=== PATIENT | female | born 1965 | race Caucasian/White ===

== ENCOUNTER 2022-02-23 15:05 | Outpatient (CLI) | payer OTHER, SELFPAY ==
--- OUTSIDE RECORDS SUMMARY | 2022-02-23 08:28 | XMS_ITS | Clinical Summary ---
:1965 Author Organization [facility] [place] [address] Care Team Providers Name Role Phone Pcp, No Primary Care Provider Unavailable Allergies Not on File Medications Medication Sig Dispensed Refills Start Date End Date Status levothyroxine (SYNTHROID) 75 mcg 0 018 Active tablet indomethacin (INDOCIN) 50 mg capsule 0 Active Active Problems Not on file Social History Tobacco Use Types Packs/Day Years Used Date Never Smoker Sex Assigned at Date Recorded Not on file Obstetrics History Last Filed Vital Signs Vital Sign Reading Time Taken Comments Blood Pressure 107/72 09/11/2017 3:38 PM CDT Pulse 86 09/11/2017 3:38 PM CDT Temperature - - Respiratory Rate - - Oxygen Saturation 97% 09/11/2017 3:38 PM CDT Inhaled Oxygen Concentration - - Weight 94.4 kg (208 lb 3.2 oz) 09/11/2017 3:38 PM CDT Height - - Body Mass Index - - Plan of Treatment Health Maintenance Due Date Last Done Comments COVID-19 vaccine series (#1) 1967 Tdap 1978 Depression screening for age 12+ 1979 BMI (ht and wt on same day) for age 18+ 1985 Hepatitis C screening for age 18-79 1985 Tetanus booster 1987 Pap test for age 21-65 02/02/1988 Colonoscopy through age 75 02/02/2012 Lipids for age 45-75 02/02/2012 Mammogram for age 45-75 02/02/2012 Zoster (shingles) series for age 50+ (1 of 2) 2017 Influenza for age 50-64 12/29/2021 Results Not on filefrom Last 3 Months Insurance Payer Benefit Plan / Subscriber ID Effective Dates Phone Addre ss Type Group PREFERRED ONE PREFERRED ONE [id number] 2016-Present [address] [place] [address] Care Teams Vein Pumper Relationship Specialty Start Date End Date Pcp, No PCP - General 09/11/17 .
[2022-02-23 12:04] LABS: Albumin* 4.4 g/dL (3.3-5.0)
[2022-02-23 12:05] LABS: Chloride* 102 mmol/L (96-114); Sodium* 139 mmol/L (135-149)
[2022-02-23 12:07] LABS: Alanine Aminotransferase* 17 U/L (4-35); Alkaline Phosphatase* 33 U/L (40-150); Aspartate Amino Transferase* 22 U/L (12-35); Bilirubin Total* 0.3 mg/dL (0.1-1.5); Blood Urea Nitrogen* 22 mg/dL (7-30); Carbon Dioxide* 31 mmol/L (20-32); Cholesterol* 236 mg/dL (90-199); Creatinine* 1.7 mg/dL (0.5-1.5); Estimated Glomerular Filt Rate 35 ml/min; Glucose* 89 mg/dL (60-115); Total Protein* 7.4 g/dL (6.0-8.3)
[2022-02-23 12:08] LABS: Calcium* 10.5 mg/dL (8.4-10.6); HDL Cholesterol* 71 mg/dL (>=50); LDL Cholesterol Calculated 138 mg/dL (<100); Triglycerides* 133 mg/dL (40-149)
== END 2022-02-23 15:06 | disposition home or self-care (01) ==
PROVIDERS: PCP Internal Medicine; Visit Provider Internal Medicine
DX: Z01.419 Encounter for gynecological examination (general) (routine) without abnormal findings (principal); E03.9 Hypothyroidism, unspecified; R79.89 Other specified abnormal findings of blood chemistry; Z13.6 Encounter for screening for cardiovascular disorders
CPT/HCPCS: 80053; 80061; 84443

== ENCOUNTER 2022-03-14 13:50 | Outpatient (CLI) | payer OTHER, SELFPAY ==
--- OUTSIDE RECORDS SUMMARY | 2022-03-14 13:52 | XMS_ITS | Clinical Summary ---
:1965 Author Organization [facility] [place] [address] Care Team Providers Name Role Phone Pcp, [...] ss Type Group PREFERRED ONE PREFERRED ONE [id number] 2016-Present [address] [place] [address] Care Teams Adoption Services Manager Relationship Specialty Start Date End Date Pcp, No PCP - General 09/11/17 .
[2022-03-14 22:24] LABS: SARS PCR* Negative SARS-CoV-2 (Negative)
== END 2022-03-14 13:51 | disposition home or self-care (01) ==
LOC: KYNREF 13:51
PROVIDERS: PCP Internal Medicine; Visit Provider Nurse Practitioner Family
DX: Z20.822 Contact with and (suspected) exposure to COVID-19 (principal); R05.9 Cough, unspecified
CPT/HCPCS: 87635

== ENCOUNTER 2022-03-31 08:00 | Outpatient (CLI) | payer OTHER, SELFPAY ==
--- OUTSIDE RECORDS SUMMARY | 2022-03-31 08:03 | XMS_ITS | Clinical Summary ---
:1965 Author Organization [facility] [place] [address] Care Team Providers Name Role Phone Pcp, [...] 1978 Depression screening for age 12+ 1979 HIV for age 15-65 1982 BMI (ht and wt on same day) [...] ss Type Group PREFERRED ONE PREFERRED ONE [id number] 2016-Present [address] [place] [address] Care Teams Rn Hemodialysis Relationship Specialty Start Date End Date Pcp, No PCP - General 09/11/17 .
[2022-03-31 15:18] LABS: Chloride* 105 mmol/L (96-114); Sodium* 142 mmol/L (135-149)
[2022-03-31 15:19] LABS: Potassium* 4.7 mmol/L (3.6-5.1)
[2022-03-31 15:21] LABS: Blood Urea Nitrogen* 18 mg/dL (7-30); Carbon Dioxide* 27 mmol/L (20-32); Creatinine* 1.1 mg/dL (0.5-1.5); Estimated Glomerular Filt Rate 59 ml/min
[2022-03-31 15:22] LABS: Calcium* 10.8 mg/dL (8.4-10.6); Glucose* 89 mg/dL (60-115)
== END 2022-03-31 08:01 | disposition home or self-care (01) ==
LOC: KYNREF 08:02
PROVIDERS: PCP Nurse Practitioner Family; Visit Provider Nurse Practitioner Family
DX: R79.89 Other specified abnormal findings of blood chemistry (principal)
CPT/HCPCS: 80048

== ENCOUNTER 2022-04-04 13:41 | Outpatient (CLI) | payer OTHER, SELFPAY ==
--- OUTSIDE RECORDS SUMMARY | 2022-04-04 13:43 | XMS_ITS | Clinical Summary ---
:1965 Author Organization [employer] [facility] [place] [address] Care Team Providers Name Role Phone Pcp, [...] ss Type Group PREFERRED ONE PREFERRED ONE [id number] 2016-Present [address] [place] [address] Care Teams Bus Driver Supervisor Relationship Specialty Start Date End Date Pcp, No PCP - General 09/11/17 .
--- NOTE | 2022-04-04 15:20 | CRLHL7_ITS ---
For Patients: As a result of the Century Cures Act, medical imaging exams and procedure reports are released immediately into your electronic medical record. You may view this report before your referring provider. If you have questions, please contact your health care provider. BILATERAL SCREENING MAMMOGRAM WITH COMPUTER-AIDED DETECTION AND TOMOSYNTHESIS TECHNIQUE: CC and MLO views were obtained. These mammographic images have been obtained using full-field digital technique. These mammographic images were interpreted with the benefit of computer-aided detection. Breast Tomosynthesis was used in this interpretation. COMPARISON FILM: 12/25/19, 06/12/17, 06/08/16. FINDINGS: There are scattered areas of fibroglandular density IMPRESSION: There is no radiographic evidence for malignancy. ASSESSMENT: BI-RADS Category 1: Negative RECOMMENDATION: Routine screening mammogram in 1 year. A lay language report of this examination will be provided to the patient. Mat Ogden M.D. Diagnostic Radiologist [email or web address] Transcribed: 4:15 pm DW/Dictated by: Mat Ogden MD @ 04/05/2022 8:15:00 AM (Electronically Signed)
== END 2022-04-04 13:42 | disposition home or self-care (01) ==
LOC: MAMMO 13:41
PROVIDERS: PCP Nurse Practitioner Family; Visit Provider Internal Medicine
DX: Z12.31 Encounter for screening mammogram for malignant neoplasm of breast (principal)
CPT/HCPCS: 77063; 77067

== ENCOUNTER 2022-04-26 07:03 | Outpatient (CLI) | payer OTHER, SELFPAY ==
--- NOTE | 2022-04-26 07:15 | CRLHL7_ITS ---
For Patients: As a result of the Century Cures Act, medical imaging exams and procedure reports are released immediately into your electronic medical record. You may view this report before your referring provider. If you have questions, please contact your health care provider. INDICATION: Headaches. TECHNIQUE: Multiplanar multisequence noncontrast MR images acquired through the brain. COMPARISON: None. FINDINGS: The ventricles and sulci are within normal limits for patient age. No mass effect or midline shift. No parenchymal signal abnormalities. No intracranial hemorrhage or pathologic extra-axial fluid collection. No diffusion restriction to suggest acute infarction. The major arterial flow voids of the skullbase are preserved. The globes are symmetric. The paranasal sinuses are well aerated. The mastoid air cells are clear. IMPRESSION: Unremarkable noncontrast MRI of the brain. Dictated by Darien Ceballos MD @ 04/26/2022 1:29:56 PM (Electronically Signed)
== END 2022-04-26 07:04 | disposition home or self-care (01) ==
LOC: MRI 07:04
PROVIDERS: PCP Nurse Practitioner Family; Visit Provider Nurse Practitioner Family
DX: R51.9 Headache, unspecified (principal)
CPT/HCPCS: 70551

== ENCOUNTER 2022-07-27 07:56 | Emergency (ER) | payer OTHER, SELFPAY ==
[2022-07-27 07:58] VITALS: BP 149/88; PULSE 87; RESP 18; TEMP 36.1; O2SAT 97; BMI 36.9
--- NOTE | 2022-07-27 08:24 | ED.GENADULT ---
HPI - General Adult General Chief complaint: Extremity Pain/Injury, Upper Stated complaint: Left arm pain Time Seen by Provider: 07/27/22 08:09 History of Present Illness HPI narrative: This 57-year-old female comes in because of tingling sensation in her left arm that began this morning. She does not report any headache or weakness. She is walking and talking normally. She does not describe any injury event. She denies having any neck pain. She reports that her mother at her current age and this is triggering some anxiety regarding these symptoms. Related Data Previous Rx's Medication Instructions Recorded levothyroxine 75 mcg capsule 75 mcg PO QDAY #90 caps 03/06/22 meloxicam 15 mg tablet 15 mg PO DAILY #30 tabs 07/27/22 Allergies Allergy/AdvReac Type Severity Reaction Status Date / Time No Known Drug Allergies Allergy Verified 07/27/22 08:06 Review of Systems Status of ROS: Reports: 10 or more systems reviewed and unremarkable except as noted in History and below Narrative: Constitutional: No fevers, no weight gain or loss. Eyes: No discharge. No vision changes. HENT: No congestion, no sore throat, no ear pain. Cardiovascular: No chest pain, no palpitations. Respiratory: No shortness of breath, no wheezes, no cough. Gastrointestinal: No abdominal pain, no vomiting, no diarrhea. Genitourinary: No dysuria, no hematuria. Musculoskeletal: Normal range of motion. Skin: No rashes, no pruritis. Neurological: No dizziness, weakness, speech change. Tingling sensation in her left arm. Endo/Heme/Allergies: No bruising or bleeding. No polydipsia. Pysch: no suicidality, no anxiety, no insomnia. All other systems reviewed and are negative. [facility] Medical History (Updated 07/27/22 @ 09:41 by Stas Goldstein MD) Elevated serum creatinine ?R79.89 - Other specified abnormal findings of blood chemistry (ICD-10) Healthcare maintenance ?Z00.00 - Encounter for general adult medical examination without abnormal findings (ICD-10) Insomnia ?G47.00 - Insomnia, unspecified (ICD-10) Pain ?R52 - Pain, unspecified (ICD-10) Surgical History (Updated 04/17/22 @ 15:19 by Soniya Torre APRN, FILTER TIP CATCHER) History of bilateral knee replacement ?Z96.653 - Presence of artificial knee joint, bilateral (ICD-10) Family History (Updated 04/03/22 @ 13:13 by Soniya Torre APRN, FILTER TIP CATCHER) Mother Osteoporosis Stroke Social History Smoking Status: Never smoker How often do you have a drink containing alcohol: never How often do you have six or more drinks on one occasion: Never AUDIT-C Alcohol total score: 0 Non-prescribed substance use: denies use service: No Exam Narrative: Exam Narrative: Constitutional: Well-developed, well-nourished, no acute distress. HEENT: Normocephalic, atraumatic. Neck: Normal range of motion. Nontender. Supple. Heart: Regular. No murmurs. Normal rate. Intact distal pulses. Lungs: Clear to auscultation. No chest discomfort. No wheezes, rhonchi, or rales. Abdomen: Normal bowel sounds. Nontender. No rebound tenderness. Genitalia: Deferred. Back: No midline tenderness. Normal range of motion. Extremities: Normal range of motion. No injury. Skin: Intact. No rash. Warm. No erythema or pallor. Neurologic: No weakness. Alert and oriented. No facial asymmetry. Tongue is midline. Video Control Engineer strength is equal bilaterally. Klsyxi-wy-dwav is normal. No pronator drift. She is able to raise each leg from the bed. She is speaking and walking normally. She does report paresthesias in her left upper extremity. Psychiatric: No suicidality. No anxiety or depression. No insomnia. Nursing notes and vitals signs are reviewed. Const: Vital Signs, click to edit/add: Vital Signs - 24 hr 07/27/22 07:58 Temperature 96.9 F L Pulse Rate [Right Pulse Oximeter] 87 Respiratory Rate 18 Blood Pressure [Ri ght Upper Arm] 149/88 H Pulse Oximetry 97 Oxygen Delivery Me thod Room Air Course Vital Signs Vital signs: Initial Vital Signs Temperature 96.9 F L 07/27/22 07:58 Temperature Source Temporal Artery Scan 07/27/22 07:58 Pulse Rate 87 07/27/22 07:58 Respiratory Rate 18 07/27/22 07:58 Blood Pressure 149/88 H 07/27/22 07:58 Blood Pressure Mean 108 07/27/22 07:58 Blood Pressure Position Sitting 07/27/22 07:58 Pulse Oximetry 97 07/27/22 07:58 Oxygen Delivery Method Room Air 07/27/22 07:58 Vital Signs Temperature 96.9 F L 07/27/22 07:58 Pulse Rate 87 07/27/22 07:58 Respiratory Rate 18 07/27/22 07:58 Blood Pressure 149/88 H 07/27/22 07:58 Pulse Oximetry 97 07/27/22 07:58 Oxygen Delivery Method Room Air 07/27/22 07:58 Temperature 96.9 F L 07/27/22 07:58 Pulse Rate 87 07/27/22 07:58 Respiratory Rate 18 07/27/22 07:58 Blood Pressure 149/88 H 07/27/22 07:58 Pulse Oximetry 97 07/27/22 07:58 Oxygen Delivery Method Room Air 07/27/22 07:58 Medical Decision Making MDM Narrative Medical decision making narrative: This patient comes in reporting a tingling sensation in her left upper extremity. This occurred upon awakening this morning. She is not showing any sign of unilateral weakness or other stroke-like symptoms. The patient did have a scan of her brain in the past month or 2 with normal results. Lab results returned with reassuring findings. She was pleased to see that her creatinine is in normal range. She requested cholesterol check which was done as she is currently fasting. Her total cholesterol and LDL levels are elevated as is her HDL which provide some protection. I advised her to follow-up with her primary physician regarding these matters. She states that she has benefited from meloxicam in the past. I stated that it would be okay to resume this medicine with her kidney function as it is however prolonged use can have consequences. Lab Data Labs: Lab Results 07/27/22 Range/Units 08:37 WBC 5.54 (4.50-11.00) K/uL RBC 4.37 (4.00-5.20) m/uL Hgb 12.6 (12.0-16.0) gm/dL Hct 39.4 (33.0-51.0) % MCV 90 (80-100) fL MCH 29 (26-34) pg MCHC 32 (32-36) gm/dL RDW Coeff of Myke 11.8 (11.5-15.5) % Plt Count 273 (140-440) K/uL Neut % (Auto) 52.3 (42.0-72.0) % Lymph % (Auto) 35.6 (20-44) % Marathon % (Auto) 9.9 (0.0-11.0) % Eos % (Auto) 1.3 (0.0-7.0) % Baso % (Auto) 0.7 (0.0-3.0) % Neut # (Auto) 2.90 (1.7-7.0) K/uL Lymph # (Auto) 1.97 (0.90-2.90) K/uL Marathon # (Auto) 0.50 (0.00-0.90) K/UL Eos # (Auto) 0.07 (0.00-0.50) K/uL Baso # (Auto) 0.04 (0.00-0.30) K/uL Sodium 138 (135-149) mmol/L Potassium 4.6 (3.6-5.1) mmol/L Chloride 104 (96-114) mmol/L Carbon Dioxide 28 (20-32) mmol/L BUN 22 (7-30) mg/dL Creatinine 1.1 (0.5-1.5) mg/dL Estimated Creat Clear 49.90 Estimated GFR 59 ml/min Glucose 92 (60-115) mg/dL Calcium 10.1 (8.4-10.6) mg/dL Triglycerides 91 (40-149) mg/dL Cholesterol 254 H (90-199) mg/dL LDL Cholesterol, Calc 150 H (<100) mg/dL HDL Cholesterol 86 (>=50) mg/dL Discharge Plan Discharge Clinical Impression: Arm paresthesia, left Patient Disposition: Home, Self-Care Condition: Stable Additional Instructions: Take medication as needed and indicated. Follow up with MD for ongoing management. Return if worsening. Prescriptions: New meloxicam 15 mg tablet 15 mg PO DAILY Qty: 30 2RF No Action levothyroxine 75 mcg capsule 75 mcg PO QDAY Qty: 90 3RF Follow Up/Referrals: Soniya Torre APRN, FILTER TIP CATCHER [Primary Care Provider] - Stand Alone Forms: MyHealth Info Instructions
[2022-07-27 08:44] LABS: Basophils Absolute Auto 0.04 K/uL (0.00-0.30); Basophils Percent Auto 0.7 % (0.0-3.0); Eosinophils Absolute Auto 0.07 K/uL (0.00-0.50); Eosinophils Percent Auto 1.3 % (0.0-7.0); Hematocrit 39.4 % (33.0-51.0); Hemoglobin* 12.6 gm/dL (12.0-16.0); Immature Granulocytes Abs Auto 0.01 K/uL (0.00-0.30); Immature Granulocytes Pct Auto 0.2 %; Lymphocytes Absolute Auto 1.97 K/uL (0.90-2.90); Lymphocytes Percent Auto 35.6 % (20-44); Mean Corpuscular HGB Conc 32 gm/dL (32-36); Mean Corpuscular Hemoglobin 29 pg (26-34); Mean Corpuscular Volume 90 fL (80-100); Monocytes Percent Auto 9.9 % (0.0-11.0); Neutrophils Percent Auto 52.3 % (42.0-72.0); Platelet Count* 273 K/uL (140-440); RDW Coefficient of Variation % 11.8 % (11.5-15.5); Red Blood Count 4.37 m/uL (4.00-5.20); White Blood Count* 5.54 K/uL (4.50-11.00)
[2022-07-27 08:55] LABS: Chloride* 104 mmol/L (96-114); Sodium* 138 mmol/L (135-149)
[2022-07-27 08:56] LABS: Potassium* 4.6 mmol/L (3.6-5.1)
[2022-07-27 08:58] LABS: Blood Urea Nitrogen* 22 mg/dL (7-30); Carbon Dioxide* 28 mmol/L (20-32); Cholesterol* 254 mg/dL (90-199); Creatinine* 1.1 mg/dL (0.5-1.5); Estimated Glomerular Filt Rate 59 ml/min; Glucose* 92 mg/dL (60-115)
[2022-07-27 09:00] LABS: Calcium* 10.1 mg/dL (8.4-10.6); HDL Cholesterol* 86 mg/dL (>=50); LDL Cholesterol Calculated 150 mg/dL (<100); Triglycerides* 91 mg/dL (40-149)
[2022-07-27 09:09] LABS: Slide Review Reflex No
== END 2022-07-27 09:49 | disposition home or self-care (01) ==
PROVIDERS: Emergency Provider Emergency Medicine Emergency Medical Services; PCP Nurse Practitioner Family
DX: R20.2 Paresthesia of skin (principal)
CPT/HCPCS: 36415; 80048; 80061; 85025; 99283; 99284

== ENCOUNTER 2023-05-29 13:46 | Outpatient (CLI) | payer OTHER, SELFPAY ==
--- OUTSIDE RECORDS SUMMARY | 2023-05-29 13:48 | XMS_ITS | Clinical Summary ---
Author Name Unknown Organization [employer] [facility] Address [place], [place] [address] Care Team Providers Care Disposal Worker Name Role Phone Pcp, No Primary Care Provider Unavailabl e Medications Medication Sig Dispensed Refills Start Date End Date Status levothyroxine (SYNTHROID) 75 mcg tablet 0 07/10/2017 Active indomethacin (INDOCIN) 50 mg capsule 0 08/22/2017 Active Social History Tobacco Use Types Packs/Day Years Used Date Smoking Tobacco: Never Sex and Gender Information Value Date Recorded Sex Assigned at Not on file Gender Identity Not on file Sexual Orientation Not on file Obstetrics History Last Filed Vital Signs Vital Sign Reading Time Taken Comments Blood Pressure 107/72 09/11/2017 3:38 PM CDT Pulse 86 09/11/2017 3:38 PM CDT Temperature - - Respiratory Rate - - Oxygen Saturation 97% 09/11/2017 3:38 PM CDT Inhaled Oxygen Concentration - - Weight 94.4 kg (208 lb 3.2 oz) 09/11/2017 3:38 P M CDT Height - - Body Mass Index - - Plan of Treatment Health Maintenance Due Date Last Done Comments COVID-19 vaccine series (#1) 1967 Tdap 1978 Depression screening for age 12+ 1979 HIV for age 15-65 1982 BMI (ht and wt on same day) for age 18+ 1985 Hepatitis C screening for ag e 18-79 1985 Tetanus booster 1987 Pap test for age 21-65 02/02/1988 Colonoscopy through age 75 02/02/2012 Lipids for age 45-75 02/02/2012 Mammogram for age 45-75 02/02/2012 Zoster (shingles) series for age 50+ (1 of 2) 2017 Influenza for age 50-64 12/29/2022 Pneumococcal series for age 6-64 Aged Out No longer eligible based on patient's age to complete this topic Care Teams Disposal Worker Relationship Specialty Start Date End Date Pcp, No . PCP - General 09/11/17
== END 2023-05-29 13:47 | disposition home or self-care (01) ==
PROVIDERS: PCP Nurse Practitioner Family; Visit Provider Nurse Practitioner Family
DX: E03.9 Hypothyroidism, unspecified (principal)
CPT/HCPCS: 80048; 84443

== ENCOUNTER 2024-05-15 15:53 | Outpatient (CLI) | payer OTHER, SELFPAY ==
[2024-05-15 23:20] LABS: Strep A DNA Probe* NOT DETECTED (Not Detectd)
== END 2024-05-15 15:54 | disposition home or self-care (01) ==
LOC: KYNREF 15:54
PROVIDERS: PCP Nurse Practitioner Family; Visit Provider Nurse Practitioner Family
DX: J02.9 Acute pharyngitis, unspecified (principal)
CPT/HCPCS: 87651

== ENCOUNTER 2024-06-23 15:19 | Outpatient (CLI) | payer OTHER, SELFPAY | END 2024-06-23 15:20 | disposition home or self-care (01) | PROVIDERS: PCP Nurse Practitioner Family; Visit Provider Nurse Practitioner Family | DX: E03.9 Hypothyroidism, unspecified (principal); M19.90 Unspecified osteoarthritis, unspecified site; R79.89 Other specified abnormal findings of blood chemistry; Z13.0 Encounter for screening for diseases of the blood and blood-forming organs and certain disorders involving the immune mechanism; Z13.6 Encounter for screening for cardiovascular disorders | CPT/HCPCS: 80053; 80061; 84443; 85025 ==

== ENCOUNTER 2024-08-11 06:59 | Outpatient (CLI) | payer OTHER, SELFPAY ==
--- NOTE | 2024-08-11 08:46 | P.ANES_ITS ---
Anesthesia Charges Start Date/Time Anesthesia Start Date: 08/11/24 Anesthesia Start Time: 08:09 Stop Date/Time Anesthesia Stop Date: 08/11/24 Anesthesia Stop Time: 08:46 Coding CPT Codes CPT Codes: MANNY LWR INTST SCR COLSC - 27378 ([id number]) P2 - PATIENT W/MILD SYST DISEASE, QX - RESPIRATORY COORDINATOR SVC W/ MD MED DIRECTION, QK - INSIGHT LEADER 2-4 CNCRNT ANES PROC
--- NOTE | 2024-08-11 08:46 | W.ANESCHARGE ---
Anesthesia Charges Start Date/Time Anesthesia Start Date: 08/11/24 Anesthesia Start Time: 08:09 Stop Date/Time Anesthesia Stop Date: 08/11/24 Anesthesia Stop Time: 08:46 Coding CPT Codes CPT Codes: MANNY LWR INTST SCR COLSC - 62341 ([id number]) P2 - PATIENT W/MILD SYST DISEASE, QX - COACH OPERATOR SVC W/ MD MED DIRECTION, QK - BATCH PLANT SUPERVISOR 2-4 CNCRNT ANES PROC
--- NOTE | 2024-08-11 09:19 | P.ANES_ITS ---
Anesthesia Charges Start Date/Time Anesthesia Start Date: 08/11/24 Anesthesia Start Time: 08:09 Stop Date/Time Anesthesia Stop Date: 08/11/24 Anesthesia Stop Time: 08:46 Coding CPT Codes CPT Codes: MANNY LWR INTST SCR COLSC - 42322 ([id number]) P2 - PATIENT W/MILD SYST DISEASE, QK - CLINICAL RESEARCH MONITOR 2-4 CNCRNT ANES PROC, QX - VIDEO GAME SCRIPT WRITER SVC W/ MD MED DIRECTION
--- NOTE | 2024-08-11 09:19 | W.ANESCHARGE ---
Anesthesia Charges Start Date/Time Anesthesia Start Date: 08/11/24 Anesthesia Start Time: 08:09 Stop Date/Time Anesthesia Stop Date: 08/11/24 Anesthesia Stop Time: 08:46 Coding CPT Codes CPT Codes: MANNY LWR INTST SCR COLSC - 01470 ([id number]) P2 - PATIENT W/MILD SYST DISEASE, QK - LAST SAWYER 2-4 CNCRNT ANES PROC, QX - DIRECTOR OF RETAIL ANALYTICS SVC W/ MD MED DIRECTION
== END 2024-08-11 07:00 | disposition home or self-care (01) ==
LOC: OP CLINIC 07:00
PROVIDERS: PCP Nurse Practitioner Family; Visit Provider Surgery
DX: Z12.11 Encounter for screening for malignant neoplasm of colon (principal)
CPT/HCPCS: 00812; 45378; J2704

== ENCOUNTER 2024-11-24 15:15 | Outpatient (RCR) | payer OTHER, SELFPAY | END 2025-01-06 17:26 | disposition home or self-care (01) | PROVIDERS: PCP Nurse Practitioner Family; Visit Provider Nurse Practitioner Family | DX: M25.512 Pain in left shoulder (principal); R20.0 Anesthesia of skin; Z51.89 Encounter for other specified aftercare | CPT/HCPCS: 97035; 97110; 97112; 97140; 97161 ==

== ENCOUNTER 2024-12-09 13:34 | Outpatient (CLI) | payer OTHER, SELFPAY ==
--- NOTE | 2024-12-09 13:40 | CRLHL7_ITS ---
For Patients: As a result of the Century Cures Act, medical imaging exams and procedure reports are released immediately into your electronic medical record. You may view this report before your referring provider. If you have questions, please contact your health care provider. INDICATION: BILATERAL SCREENING MAMMOGRAM, ASYMPTOMATIC 59 Y/O FEMALE COMPARISON: 04/04/2022, 12/25/19, 06/12/2017 TECHNIQUE: Digital mammogram in CC and MLO projections including computer-aided detection (CAD) and tomosynthesis. BREAST COMPOSITION: There are scattered areas of fibroglandular density. FINDINGS: No suspicious findings. ASSESSMENT: BI-RADS 1 Negative RECOMMENDATION: Annual screening mammogram. A lay language report of this examination will be provided to the patient. Dictated by: Mat Ogden MD @ 12/10/2024 09:20:34 (Electronically Signed)
== END 2024-12-09 13:35 | disposition home or self-care (01) ==
LOC: MAMMO 13:35
PROVIDERS: PCP Nurse Practitioner Family; Visit Provider Nurse Practitioner Family
DX: Z12.31 Encounter for screening mammogram for malignant neoplasm of breast (principal)
CPT/HCPCS: 77063; 77067

== ENCOUNTER 2025-03-10 13:46 | Outpatient (CLI) | payer OTHER, SELFPAY ==
--- NOTE | 2025-03-10 14:30 | MR_ITS ---
EXAM: MRI of the RIGHT SHOULDER WITHOUT CONTRAST CLINICAL HISTORY: Ongoing right shoulder pain. COMPARISONS: Plain radiographs 01/23/2025. TECHNICAL: MRI sequences of the right shoulder: Axials: PD, T2 Coronals: PD, STIR, T2 Sagittals: PD, T2 SEDATION: None CONTRAST: None FINDINGS: Bones: No fracture or suspicious bone marrow signal abnormality. Coracoacromial arch: Acromion: No os acromiale. Small subacromial enthesophyte. Acromioclavicular joint: Mild to moderate osteoarthritis. Coracoclavicular ligament: The coracoclavicular ligament is intact. Rotator cuff muscles/tendons: Supraspinatus and infraspinatus: Complete full-thickness tear of the supraspinatus tendon insertion possibly extending into the anterior portion of the infraspinatus tendon insertion with maximal tendon retraction to the medial portion of the humeral head. Minimal atrophy of the supraspinatus and infraspinatus muscles. Teres minor: The teres minor tendon and muscle are intact. Subscapularis: 1.5 cm in craniocaudad dimension near full-thickness articular sided tear of the subscapularis tendon with retraction of torn tendon fibers to the level of the glenoid. Minimal atrophy of the subscapularis muscle. Labrum and glenohumeral joint: Posterosuperior labral fraying. Physiologic amount of joint fluid. No discrete chondral defect or subchondral bone marrow edema/cystic change is seen. No convincing evidence of capsular edema or thickening although evaluation is suboptimal because of lack of joint distention. Proximal biceps tendon, long head and short heads: Intra-articular medial dislocation of the proximal long head of the biceps tendon from the bicipital groove. The short head is intact. IMPRESSION: 1. Complete full-thickness tear of the supraspinatus tendon insertion possibly extending into the anterior portion of the infraspinatus tendon insertion with maximal tendon retraction to the medial portion of the humeral head. Minimal atrophy of the supraspinatus and infraspinatus muscles. 2. 1.5 cm in craniocaudad dimension near full-thickness articular sided tear of the subscapularis tendon with retraction of torn tendon fibers to the level of the glenoid. Minimal atrophy of the subscapularis muscle. 3. Intra-articular medial dislocation of the proximal long head of the biceps tendon from the bicipital groove. 4. Small subacromial enthesophyte. 5. Mild to moderate acromioclavicular joint osteoarthritis. 6. Posterosuperior labral fraying. RCB Electronically signed on 03/11/2025 10:20:00 AM by Marco Hearn M.D.
== END 2025-03-10 13:47 | disposition home or self-care (01) ==
PROVIDERS: PCP Nurse Practitioner Family; Visit Provider Orthopaedic Surgery Sports Medicine
DX: M25.511 Pain in right shoulder (principal); M75.101 Unspecified rotator cuff tear or rupture of right shoulder, not specified as traumatic; M19.011 Primary osteoarthritis, right shoulder
CPT/HCPCS: 73221